=== PATIENT | female | born 1930 | race Caucasian/White ===

== ENCOUNTER 2018-01-08 15:58 | Emergency (ER) | payer MEDICARE, BC ==
--- OUTSIDE RECORDS SUMMARY | 2018-01-08 16:43 | XMS REPORT ---
:1930 External Reference #:[id number] Author Organization [facility] Address [address] [place] [address] Phone [phone] Care Team Providers Name Role Phone Shannen Haro M.D. Primary Care Physician Unavailable Payers Type Date Identification Numbers Payment Provider Subscriber Medicare Primary Policy Number: [id number] Medicare - NGS Michelle Peter PayID: [id number] [facility] [place] [address] Medigap Part B Policy Number: [id number] [place] [employer] Michelle Peter PayID: [id number] [address] [address] [place] [address] Problems Date Description Provider Status Onset: Vertigo Active Onset: Essential hypertension Active Onset: Arthritis Active Onset: 08/25/2017 Bilateral primary open angle glaucoma Michelle Marie O.D. Active Onset: 02/05/2016 Primary open-angle glaucoma, mild Michelle Marie O.D. Active stage Onset: 09/13/2015 Vitreous degeneration Michelle Marie O.D. Active Onset: 09/05/2015 Foreign body in conjunctival sac, left Queenie Edward O.D. Active eye, init encntr Onset: 06/21/2015 Ocular hypertension Michelle Marie O.D. Active Onset: 05/28/2015 Nonexudative age-related macular Ashwin Dickerson M.D. Active degeneration Onset: 05/18/2015 Refractory migraine Michelle Marie O.D. Active Onset: 05/14/2015 Pseudophakia Michelle Marie O.D. Active Onset: 05/14/2015 Nuclear senile cataract Michelle Marie O.D. 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 night Refresh Tears 09/14/ Active Solution 0.5% as needed Michelle Marie O.Fang Carvedilol / Active Tablets 3.125mg Compagni, 0000 Shannen M.D. Lorazepam / Active Tablets 0.5mg Compagni, 0000 Shannen M.D. Valsartan / Active Tablets 80mg Compagni, 0000 Shannen M.D. Aspirin / Active Tablets DR 81mg Unknown 0000 Tylenol 00/ Active Capsules 325mg prn Unknown 0000 Cyanocobalamin / Active Solution 1000mcg/M Unknown 0000 L Blink Tears 02/03/ Hx Solution 0.25% as needed Michelle Lakhani Lubricating Eye 2015 - Frank, Drops 09/14/ O.D. 2017 Travatan Z 01/11/ Hx Solution 0.004% 15uni 1 drop H40.053 Michelle Lakhani 2016 - ts both eyes [place], 09/14/ every O.D. 2017 night Latanoprost 12/25/ Hx Solution 0.005% 90uni 1 drop Michelle Lakhani 2015 - ts both eyes Frank, 02/03/ every O.D. 2016 night Fluorometholone 09/05/ Hx Suspension 0.1% 5ml 1 drop T15.12xA Queenie 2015 - 4x/day in Mike Oltz, 09/13/ Left Eye O.D. 2014 For 7 Days Systane Ultra 06/06/ Hx Solution 0.4-0.3% 1 drop Ashwin Kong 2014 - left eye [place], 07/07/ every 1 M.D. 2016 hours Ketorolac 05/28/ Hx Solution 0.4% 5ml instill Ashwin Kong Tromethamine 2015 - one in [place], 06/20/ the drop M.D. 2014 left eye three times a day starting the day before surgery Ciprofloxacin HCL 05/28/ Hx Solution 0.3% 5ml instill Ashwin Kong 2015 - one drop [place], 06/10/ in the M.D. 2014 left eye three times a day, start the day before surgery Pred Forte 05/28/ Hx Suspension 1% 15ml 1 drop Ashwin Kong 2014 - left eye [place], 06/20/ three M.D. 2015 times a day Visine Tears 05/13/ Hx Solution 0.2-0.2-1 1 drop Michelle Lakhani 2014 - % both eyes [place], 06/06/ as needed O.D. 2014 Vancomycin HCL / Hx Capsules 125mg take 1 Unknown 0000 - capsule 12/09/ four 2018 times a day for 10 days then twice a day for ... Results Description No Information Procedures Date CPT Code Description Status 08/25/2017 68326 Scanning Computerized Ophthalmic Diagnostic Imag Completed Posterior Seg On 08/25/2017 30348 Est Patient Comprehensive Exam Completed 05/07/2016 67191 Visual Field Exam Extended Completed 02/05/2016 37857 Visual Field Exam Extended Completed 02/05/2016 21061 Est Patient Comprehensive Exam Completed 12/24/2015 61219 Scanning Computerized Ophthalmic Diagnostic Imag Completed Posterior Seg On 12/24/2015 15961 Est Patient Intermediate Exam Completed 12/24/2015 00826 Pachymetry Completed 09/13/2015 35433 Est Patient Intermediate Exam Completed 09/05/2015 12274 Est Patient Intermediate Exam Completed 06/06/2015 80395 Extracapsular Cataract Extraction W/Intraocular Lens Completed 05/28/2015 75538 Ophthalmic Biometry Completed 05/28/2015 62651 Scanning Computerized Opthalmic Diagnostic Posterior Completed Seg Retina 05/14/2015 37022 Est Patient Comprehensive Exam Completed 05/04/2013 19773 Est Patient Comprehensive Exam Completed 08/25/2011 60192 Recheck Completed 08/12/2011 94218 Determination Of Refractive State Completed 08/12/2011 70636 Est Patient Comprehensive Exam Completed Encounters Type Date Location Provider CPT E/M Dx Office Visit 09/15/2017 Ashwin Dickerson MD, Michelle Marie, 06932 H40.1131 2:15p pc O.D. Office Visit 08/07/2016 Ashwin Dickerson MD, Michelle Marie, 59900 H40.11x1 1:15p pc O.D. Office Visit 05/07/2016 Ashwin Dickerson MD, Michelle Marie, 00469 H40.11x1 1:30p pc O.D. Office Visit 01/11/2016 Ashwin Dickerson MD, Michelle Marie, 93291 H40.053 10:15a pc O.D. Office Visit 05/28/2015 Ashwin Dickerson MD, Ashwin Dickerson, 65063 366.16 10:30a pc M.D. 362.51 Office Visit 05/18/2015 11:45a Ashwin Dickerson MD, Michelle Marie, O.D. 33408 346.80 pc Plan of Care 12/17/2017 - Mann Malone M.D.H40.1131 Primary open-angle glaucoma, bilateral, mild stageComments:Smoking can increase the risk of developing or worsening any eye related disease, as well as affect your overall health. If you are a smoker, we strongly recommend that you quit.If you are not a smoker, we strongly recommend that you do not start. Your glaucoma is stable at this time.Your eye pressure is within an acceptable range, and your testing does not show any further deterioration at this time. Please continue your treatment.Follow up:6MONTHS, VF 24-2, IOP CHECK
[2018-01-08 17:01] VITALS: BP 153/57
--- NOTE | 2018-01-08 17:29 | UC ---
Elbow Pain - HPI Summary HPI Summary: 87 yo female has had brief intermittent left elbow pain x 1 week notice some swelling of antecubital fossa no erythema no trauma no swelling of forearm no axiallary pain - History of Current Complaint Chief Complaint: UCSkin Stated Complaint: SKIN COMPLAINT Time Seen by Provider: 01/08/18 17:04 Onset/Duration: Weeks - 1 Pain Intensity: 0 - none at present/occasionally 8 Pain Scale Used: 0-10 Numeric Location Of Pain: Is Discrete @ - see image Character: Unable to Describe Aggravating Factor(s): Nothing Alleviating Factor(s): Nothing Associated Signs And Symptoms: Positive: Swelling - Allergies/Home Medications Allergies/Adverse Reactions: Allergies Allergy/AdvReac Type Severity Reaction Status Date / Time morphine Allergy Severe Nausea And Verified 01/08/18 16:46 Vomiting doxycycline Allergy Mild Rash Verified 01/08/18 16:46 Penicillins Allergy Mild Rash Verified 01/08/18 16:46 erythromycin base Allergy Unknown Verified 01/08/18 16:46 Reaction Details fluvastatin Allergy Unknown Verified 01/08/18 16:46 Reaction Details Home Medications: Home Medications Aspirin EC Low Dose* [Ecotrin EC Low Dose 81 MG*] 1 tab DAILY 01/08/18 [History Confirmed 01/08/18] Carvedilol TAB* [Coreg TAB*] 3.125 mg DAILY 01/08/18 [History Confirmed 01/08/18 ] Cholecalciferol (Vitamin D3) [Vitamin D3] 1 cap DAILY 01/08/18 [History Confirmed 01/08/18] Cyanocobalamin INJ * [Vitamin B12 INJ *] 1 inj MONTHLY 01/08/18 [History Confirmed 01/08/18] LORazepam TAB(*) [Ativan 0.5 MG TAB (*)] 1 tab BID 01/08/18 [History Confirmed 01/08/18] PMH/Surg Hx/FS Hx/Imm Hx Previously Healthy: Yes Cardiovascular History: Hypertension Cancer History: Colorectal Cancer - Surgical History Surgical History: Yes Surgery Procedure, Year, and Place: 1990[facility]STECTOMY[facility]CTOM[facility]- [facility]. [place] [facility] [place] 2010 RIGHT [place]EE ARTHROSCOPY- [facility]. 2017 Colectomy/Ostomy - Family History Known Family History: Positive: Cardiac Disease - Social History Alcohol Use: None Substance Use Type: None Smoking Status (MU): Never Smoked Tobacco Have You Smoked in the Last Year: No Review of Systems Constitutional: Negative Skin: Negative Eyes: Negative ENT: Negative Respiratory: Negative Cardiovascular: Negative Gastrointestinal: Negative Genitourinary: Negative Motor: Negative Neurovascular: Negative Musculoskeletal: Arthralgia Neurological: Negative Psychological: Negative Is Patient Immunocompromised?: No All Other Systems Reviewed And Are Negative: Yes Physical Exam Triage Information Reviewed: Yes Appearance: Well-Appearing, No Pain Distress, Well-Nourished Vital Signs: Initial Vital Signs Temp 98.6 F 01/08/18 16:50 Pulse 63 01/08/18 16:50 Resp 17 01/08/18 16:50 BP 153/57 01/08/18 16:50 Pulse Ox 97 01/08/18 16:50 Vital Signs Reviewed: Yes Eyes: Positive: Conjunctiva Clear ENT: Positive: Hearing grossly normal. Negative: Nasal drainage, TMs normal, Trismus, Muffled voice, Hoarse voice Neck: Positive: Supple Respiratory: Positive: Lungs clear, Normal breath sounds, No respiratory distress, No accessory muscle use Cardiovascular: Positive: RRR Abdomen Description: Positive: Nontender Musculoskeletal: Positive: ROM Intact, No Edema, Edema @ - slight swelling medial antecubital fossa/pulsitile brachial artery but no aneursym/two prominent antcubital veins but no venous cords,left forearm/upper arm and axilla all non tender. distal n/v intact Neurological Exam: Normal Neurological: Positive: Alert Elbow Pain Course/Dx - Differential Dx/Diagnosis Provider Diagnoses: left elbow pain of uncertain cause Discharge - Discharge Plan Condition: Stable Disposition: HOME Referrals: Sagrario Gayle [Primary Care Provider] - As Soon As Possible Additional Instructions: At this point I find nothing to suggest a blood clot or aneurysm in you left arm This area does need to be watched closely If any of these symptom develop over the weekend go to the ER -increased pain or constant pain -increased localized swelling/redness/warmth -swelling of arm -pain or swelling in your armpit see your MD early next week
== END 2018-01-08 17:28 | disposition home or self-care (01) ==
LOC: UCCORT 15:58
DX: M25.522 Pain in left elbow (principal); I10 Essential (primary) hypertension; Z88.1 Allergy status to other antibiotic agents; Z88.8 Allergy status to other drugs, medicaments and biological substances
CPT/HCPCS: 99211; G0463